=== PATIENT | male | born 1935 | race Caucasian/White ===

== ENCOUNTER 2018-03-20 09:11 | Emergency (ER) | payer MEDICARE, OTHER ==
[2018-03-20 10:11] LABS: CHLORIDE,CL 102 mmol/L (98-107); SODIUM,NA 138 mmol/L (136-145)
[2018-03-20] MEDS: Ondansetron 4 MG/2 ML SDV IVPUSH ONE (10:31)
[2018-03-20] MEDS: Ketorolac 30 MG/ML SDV IVPUSH ONE (10:31)
[2018-03-20] MEDS: predniSONE 20 MG Tab PO ONE (10:33)
[2018-03-20] MEDS: Morphine 2 MG/ML Syringe IVPUSH ONE (10:33)
[2018-03-20] MEDS: Sodium Chloride 0.9% 10 ML Syringe FLUSH PRN (10:34)
--- NOTE | 2018-03-20 10:47 | EDM.PDOC ---
ED HPI GENERAL MEDICAL PROBLEM - General Chief Complaint: Back Pain or Injury Stated Complaint: back pain, high blood pressure Time Seen by Provider: 03/20/18 09:40 Source of Information: Reports: Patient History Limitations: Reports: No Limitations - History of Present Illness INITIAL COMMENTS - FREE TEXT/NARRATIVE: Patient comes to ER from Chiropractor due to continuing right hip pain and noted elevated BP. Patient says BP is usually within normal parameters. Is on blood pressure meds. Developed hip pain over the last few weeks in right hip area. 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 Was seen at [place] for this, Xrays taken, told that hip looked 'OK'. No injury to area. No swelling/fevers/chills/signs of infection. No numbness or tingling of limb. No pain at rest. Says that he did develop some low back discomfort this spring when driving the tractor. No other pain complaints. Received treatment at Chiropractor yesterday, thinks that he had mild improvement but isn't certain. Unable to get down onto bed for treatment today. - Related Data Allergies Allergy/AdvReac Type Severity Reaction Status Date / Time No Known Allergies Allergy Verified 03/20/18 09:13 Home Meds: Home Meds Aspirin 81 mg PO DAILY 03/20/18 [History] Atenolol 25 mg PO DAILY 03/20/18 [History] Ibuprofen [Advil] 400 mg PO TID 03/20/18 [History] Insulin Glarg,Human.Rec.Analog [Lantus] 15 units SUBCUT BEDTIME 03/20/18 [ History] Losartan [Cozaar] 50 mg PO DAILY 03/20/18 [History] Simvastatin [Zocor] 20 mg PO DAILY 03/20/18 [History] Ubidecarenone [Co Q-10] 100 mg PO DAILY #30 capsule 03/20/18 [Rx] glyBURIDE [Glyburide] 5 mg PO BID 03/20/18 [History] metFORMIN [Glucophage] 1,000 mg PO BID 03/20/18 [History] predniSONE 20 mg PO DAILY #4 tab 03/20/18 [Rx] traMADol [Ultram] 50 mg PO Q6H PRN #20 tab 03/20/18 [Rx] Past Medical History Cardiovascular History: Reports: High Cholesterol, Hypertension Musculoskeletal History: Reports: Arthritis, Back Pain, Chronic, Osteoarthritis Endocrine/Metabolic History: 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 Denies: Shortness of Breath Cardiovascular: Reports: No Symptoms. Denies: Chest Pain, Lightheadedness GI/Abdominal: Reports: No Symptoms : Reports: No Symptoms Musculoskeletal: Reports: Back Pain (has had issues with chronic low back pain. Today complains of discomfort in anterior/posterior right hip), Joint Pain ( right hip). Denies: Foot Pain, Joint Swelling, Muscle Stiffness Skin: Reports: No Symptoms Neurological: Reports: No Symptoms. Denies: Confusion, Dizziness, Numbness Psychiatric: Reports: No Symptoms Hematologic/Lymphatic: Reports: No Symptoms ED EXAM, GENERAL - Physical Exam Exam: See Below Exam Limited By: No Limitations General Appearance: Alert, WD/WN, No Apparent Distress (when laying on bed with head elevated, resting) Eye Exam: Bilateral Eye: EOMI, PERRL Nose: No: Nasal Deformity, Nasal Swelling, Nasal Drainage Throat/Mouth: Normal Inspection, Normal Voice, No Airway Compromise Head: Atraumatic, Normocephalic Neck: Normal Inspection, Supple, Non-Tender, Full Range of Motion Respiratory/Chest: No Respiratory Distress, Lungs Clear, Normal Breath Sounds, No Accessory Muscle Use Cardiovascular: Normal Peripheral Pulses, Regular Rate, Rhythm, No Murmur GI/Abdominal: Normal Bowel Sounds, Soft, Non-Tender, No Distention (Male) Exam: Deferred Rectal (Males) Exam: Deferred Back Exam: No: CVA Tenderness (L), CVA Tenderness (R), Muscle Spasm, Paraspinal Tenderness, Vertebral Tenderness Extremities: Normal Range of Motion (patient able to actively lift both legs off the bed without issue, has full passive ROM also. ), Normal Capillary Refill , Other (Patient's pain complaint improved when allowed to rest. Returned when he would stand/walk. Improved if he walked while leaning forward at waist. ). No: Pedal Edema, Slow Capillary Refill, Joint Swelling, Increased Warmth, Mottled, Pallor, Redness Neurological: Alert, Oriented, CN II-XII Intact, Normal Cognition, No Motor/ Sensory Deficits, Other (Reflexes diminished 1/4 both lower extremities but symmetric. ) Psychiatric: Normal Affect, Normal Mood Skin Exam: Warm, Dry, Intact, Normal Color Course - Vital Signs Last Recorded V/S: Last Vital Signs Temp 36.7 C 03/20/18 10:34 Pulse 59 L 03/20/18 11:48 Resp 18 03/20/18 11:48 BP 180/69 H 03/20/18 11:48 Pulse Ox 99 03/20/18 11:48 - Orders/Labs/Meds Orders: Active Orders 24 hr Category Date Time Status CULTURE BLOOD [BC] Stat Lab 03/20/18 09:30 Received CULTURE BLOOD [BC] Stat Lab 03/20/18 09:36 Received Sodium Chloride 0.9% [Saline Flush] Med 03/20/18 10:34 Active 10 ml FLUSH ASDIRECTED PRN Blood Culture x2 Reflex Set [OM.PC] Stat Oth 03/20/18 09:27 Ordered Saline Lock Insert [OM.PC] Routine Oth 03/20/18 10:34 Ordered Medication Orders Sodium Chloride (Saline Flush) 10 ml FLUSH ASDIRECTED PRN PRN Reason: Keep Vein Open Last Admin: 03/20/18 10:34 Dose: 10 ml Labs: Laboratory Tests 03/20/18 03/20/18 Range/Units 09:30 09:30 WBC 11.8 H (4.0-10.2) K/uL RBC 4.74 (4.33-5.41) M/uL Hgb 13.4 (13.1-16.8) g/dL Hct 40.5 (39.0-49.0) % MCV 85.4 (84.0-98.0) fL MCH 28.3 (28.2-33.3) pg MCHC 33.1 (31.7-36.0) g/dL RDW 13.7 (11.2-14.1) % Plt Count 251 (150-350) K/uL Neut % (Auto) 78.1 (45.0-80.0) % Lymph % (Auto) 14.2 (10.0-50.0) % Valley % (Auto) 7.0 (2.0-14.0) % Eos % (Auto) 0.5 (0.0-5.0) % Baso % (Auto) 0.2 (0.0-2.0) % Neut # (Auto) 9.22 H (1.40-7.00) K/uL Lymph # (Auto) 1.67 (0.50-3.50) K/uL Valley # (Auto) 0.82 (0.00-1.00) K/uL Eos # (Auto) 0.06 (0.00-0.50) K/uL Baso # (Auto) 0.02 (0.00-0.20) K/uL Sodium 138 (136-145) mmol/L Potassium 3.9 (3.5-5.1) mmol/L Chloride 102 (98-107) mmol/L Carbon Dioxide 28.0 (21.0-32.0) mmol/L BUN 25 H (7-18) mg/dL Creatinine 0.81 (0.51-1.17) mg/dL Est Cr Clr Drug Dosing 72.60 mL/min Estimated GFR (MDRD) > 60 mL/min Glucose 135 H (74-106) mg/dL Calcium 8.9 (8.5-10.1) mg/dL Total Bilirubin 0.8 (0.2-1.0) mg/dL AST 12 L (15-37) U/L ALT 22 (12-78) U/L Alkaline Phosphatase 45 L (46-116) IU/L Total Protein 7.3 (6.4-8.2) g/dL Albumin 3.6 (3.4-5.0) g/dL Meds: Medications Generic Name Dose Route Start Last Admin Trade Name Freq PRN Reason Stop Dose Admin Sodium Chloride 10 ml 03/20/18 10:34 03/20/18 10:34 Saline Flush FLUSH 10 ml ASDIRECTED PRN Administration Keep Vein Open Discontinued Medications Generic Name Dose Route Start Last Admin Trade Name Freq PRN Reason Stop Dose Admin Ketorolac Tromethamine 30 mg 03/20/18 10:19 03/20/18 10:31 Toradol IVPUSH 03/20/18 10:20 30 mg ONETIME ONE Administration Morphine Sulfate 2 mg 03/20/18 10:20 03/20/18 10:33 Morphine IVPUSH 03/20/18 10:21 2 mg ONETIME ONE Administration Ondansetron HCl 4 mg 03/20/18 10:20 03/20/18 10:31 Zofran IVPUSH 03/20/18 10:21 4 mg ONETIME ONE Administration Prednisone 40 mg 03/20/18 10:20 03/20/18 10:33 Prednisone PO 03/20/18 10:21 40 mg ONETIME ONE Administration - Re-Assessments/Exams Free Text/Narrative Re-Assessment/Exam: 03/20/18 12:11 Again, patient denies injuring right hip. No fevers/chills/swelling/redness to suggest infection of artificial joint. Pain essentially present with standing/ walking/moving right hip, minimized when resting. Discussed possible CT or MRI to look more closely at low back/right hip area. This would allow a better view of the artificial joint and surrounding tissues. It would also help to more formally rule out infection. Patient declined and said that he just wanted pain medication and wished to go home. [facility] and [facility] for next week and will discuss MRI or CT with them at that time. Patient received PO Prednisone (he was warned that this would increase his blood sugars) as well as IV Toradol (Chemistry showed good renal function present) and small dose IV MS. Pain improved, BP improved. Patient requested discharge home. Will be placed on short course prednisone/ Tramadol. Will call today to arrange [facility]. Precautions reviewed prior to discharge. Departure - Departure Time of Disposition: 11:30 Disposition: Home, Self-Care 01 Condition: Good Clinical Impression: Right hip pain - Discharge Information *PRESCRIPTION DRUG MONITORING PROGRAM REVIEWED*: Not Applicable *COPY OF PRESCRIPTION DRUG MONITORING REPORT IN PATIENT SHAHRZAD: Not Applicable Prescriptions: predniSONE 20 mg PO DAILY #4 tab traMADol [Ultram] 50 mg PO Q6H PRN #20 tab PRN Reason: Pain Ubidecarenone [Co Q-10] 100 mg PO DAILY #30 capsule Instructions: Hip Pain, Ketorolac injection, Ondansetron injection, Tramadol tablets, Prednisone tablets, Morphine injection solution, Co-Enzyme Q10 oral dosage forms, Hypertension Referrals: Kye Jose MD [Primary Care Provider] - Forms: ED Department Discharge Additional Instructions: See if the hip pain improves over the next several days. The Prednisone will help inflammation and pain, but will increase your blood sugars while you are taking it. The sugars will improve once you are done with the Prednisone. No additional Aleve/motrin/ibuprofen until this evening. As we discussed, taking these medications is hard on the kidneys. We gave you a similar medication today in the ER and it is best if you avoid taking the over the counter version until suppertime tonight. [facility]. Discuss possible MRI of right hip area to assess for possible causes of your current pain issues. Follow up otherwise as needed if you have problems. - My Orders Last 24 Hours: My Active Orders 03/20/18 09:27 Blood Culture x2 Reflex Set [OM.PC] Stat 03/20/18 09:30 CULTURE BLOOD [BC] Stat 03/20/18 09:36 CULTURE BLOOD [BC] Stat 03/20/18 10:34 Sodium Chloride 0.9% [Saline Flush] 10 ml FLUSH ASDIRECTED PRN Saline Lock Insert [OM.PC] Routine - Assessment/Plan Last 24 Hours: My Active Orders 03/20/18 09:27 Blood Culture x2 Reflex Set [OM.PC] Stat 03/20/18 09:30 CULTURE BLOOD [BC] Stat 03/20/18 09:36 CULTURE BLOOD [BC] Stat 03/20/18 10:34 Sodium Chloride 0.9% [Saline Flush] 10 ml FLUSH ASDIRECTED PRN Saline Lock Insert [OM.PC] Routine
== END 2018-03-20 12:20 | disposition home or self-care (01) ==
LOC: LL.ED 09:11
DX: M25.551 Pain in right hip (principal); E78.00 Pure hypercholesterolemia, unspecified; I10 Essential (primary) hypertension; E11.9 Type 2 diabetes mellitus without complications; Z79.82 Long term (current) use of aspirin; Z79.899 Other long term (current) drug therapy; Z79.4 Long term (current) use of insulin
CPT/HCPCS: 36415; 80053; 85025; 87040; 96374; 96375; 99284; A9270-GY; J1885; J2270; J2405; J7050